=== PATIENT | female | born 1975 | race Caucasian/White ===

== ENCOUNTER 2017-01-29 21:34 | Emergency (ER) | payer MEDICAID ==
[~2017-01-29] VITALS: Ht 167.6 cm; Wt 67.0 kg
[~2017-01-29 21:34] MED LIST: CLIN150 PO
[2017-01-29 21:36] VITALS: BP 126/60; PULSE 82; RESP 16; TEMP 98.1; O2SAT 98
[2017-01-29] MEDS ORDERED: TETANUS/DIPHTHERIA TOXOID ADULT 0.5 ML VIAL IM ONE (23:30)
--- NOTE | 2017-01-29 23:32 | PD ---
HPI Chief Complaint: Injury Time Seen by Provider: 23:00 Travel History International Travel<30 days: No Contact w/Intl Traveler<30days: No Traveled to known affect area: No History of Present Illness HPI Patient is a 41-year-old female presenting to emergency for evaluation of a laceration to her right foot. Patient states she was walking out of her bedroom when she felt a sharp pain in her foot, looking down realized it was bleeding. She states her pain was a 4 out of 10 and describes as aching and sore. She is uncertain when her last tetanus vaccine was. She denies any numbness, tingling, weakness in her foot. PFSH Past Medical History Anemia: Yes Blood Disorders: No Anxiety: Yes Depression: No Cancer: No Cardiovascular Problems: No Diminished Hearing: No Endocrine: No Genitourinary: No Immune Disorder: No Musculoskeletal: No Neurologic: No Psychiatric: Yes Respiratory: No : 5 Para: 5 Tubal Ligation: Yes Past Surgical History Appendectomy: Yes Cholecystectomy: Yes Other Surgery: Yes (LLE sx) Social History Alcohol Use: No Tobacco Use: Yes (1/2 PACK) Substance Use: No Allergies-Medications (Allergen,Severity, Reaction): Coded Allergies: Codeine (Verified Allergy, Severe, SHORTNESS OF BREATH, 08/19/16) Percocet (Verified Allergy, Severe, 08/19/16) Lortab (Verified Adverse Reaction, Intermediate, SOB/HIVES, 08/19/16) Penicillin (Verified Adverse Reaction, Intermediate, 08/19/16) Reported Meds & Prescriptions Reported Meds & Active Scripts Active Cleocin (Clindamycin HCl) 150 Mg Cap 150 Mg PO Q6 10 Days Review of Systems Except as stated in HPI: all other systems reviewed are Neg Musculoskeletal: Positive: Pain Skin: Positive Other (laceration) Physical Exam Narrative GENERAL: Well-nourished, well-developed patient. SKIN: Focused skin assessment warm/dry. 2 cm laceration to the lateral aspect of the right foot. HEAD: Normocephalic. EYES: No scleral icterus. No injection or drainage. NECK: Supple, trachea midline. No JVD or lymphadenopathy. CARDIOVASCULAR: Regular rate and rhythm without murmurs, gallops, or rubs. RESPIRATORY: Breath sounds equal bilaterally. No accessory muscle use. GASTROINTESTINAL: Abdomen soft, non-tender, nondistended. MUSCULOSKELETAL: No cyanosis, or edema. Positive pedal pulses, brisk less than 3 second capillary refill. 5/5 muscle strength in bilateral lower extremities. Patient is neurovascularly intact. BACK: Nontender without obvious deformity. No CVA tenderness. Data Data Last Documented VS Vital Signs Date Time Temp Pulse Resp B/P Pulse Ox O2 Delivery O2 Flow Rate FiO2 01/29/17 21:36 98.1 82 16 126/60 98 Room Air Orders Shoe Post Op (01/29/17 ) Tetanus/Diphtheria Tox Adult (Tetanus/Di (01/29/17 23:30) Shoe Cast (01/29/17 ) MDM Medical Decision Making Medical Screen Exam Complete: Yes Emergency Medical Condition: Yes Interpretation(s) Vital Signs Date Time Temp Pulse Resp B/P Pulse Ox O2 Delivery O2 Flow Rate FiO2 01/29/17 21:36 98.1 82 16 126/60 98 Room Air Differential Diagnosis Laceration versus abrasion versus retained foreign body versus other Narrative Course Patient is a 41-year-old female presenting to emergency department for evaluation of a laceration to her right foot. No active bleeding noted, patient 's tetanus vaccine will be updated in the emergency department today. Please see procedure report laceration repair. Patient was well visualized, there is no tendon injury, no retained foreign body. Patient was advised to have stitches removed in 7-10 days. She will be given postop shoe for comfort. She denies return to emergency department for any new or worsening symptoms. She is advised to follow-up with her primary doctor. She verbalized understanding of instructions. Patient stable for discharge. Procedures Procedure Narrative LACERATION LOCATION: Right foot, lateral aspect LENGTH: 2 cm NUMBER OF STITCHES/MCKENNA: 4 stitches REPAIR: The area of the laceration was prepped with Betadine and sterilely draped. The laceration was infiltrated with 1% lidocaine with epi. The wound was copiously irrigated and explored without evidence of foreign body, tendon injury or neurovascular injury. The wound was closed using 4-0 Ethilon. This was a 1 layer repair. A sterile dressing was applied. The patient was advised to keep the dressing clean and dry. Patient tolerated the procedure well. Diagnosis Primary Impression: Laceration of foot Qualified Code: S91.311A - Laceration of foot, right, initial encounter Additional Impression: Tetanus-diphtheria vaccination administered at current visit Referrals: Primary Care Physician 1 week Patient Instructions: Care For Your Stitches (ED), General Instructions, Laceration (ED), Stitches Removal (DC) Departure Forms: Tests/Procedures, Work Release Enter return to work date: Jan 31, 2017 Additional Instructions: Follow-up with your primary doctor in 1 week to have stitches removed You may return to emergency department to have stitches removed Rest, ice, elevate extremity Keep stitches clean and dry, apply nonocclusive dressing Return to emergency department for any new or worsening symptoms Med/Other Pt SpecificInfo: No Change to Meds Disposition: 01 DISCHARGE HOME Condition: Stable Yessi Barahona Jan 29, 2017 23:32
== END 2017-01-29 23:59 | disposition home or self-care (01) ==
LOC: NEPC 21:34
DX: S91.311A Laceration without foreign body, right foot, initial encounter (principal); D64.9 Anemia, unspecified; W22.8XXA Striking against or struck by other objects, initial encounter; Y93.01 Activity, walking, marching and hiking; Y92.003 Bedroom of unspecified non-institutional (private) residence as the place of occurrence of the external cause; Z72.0 Tobacco use; Z23 Encounter for immunization
CPT/HCPCS: 12001; 90471; 90714; 99283; L3260

== ENCOUNTER 2017-02-05 12:50 | Emergency (ER) | payer MEDICAID ==
[~2017-02-05] VITALS: Ht 162.6 cm; Wt 56.0 kg
[2017-02-05 12:52] VITALS: BP 123/59; PULSE 86; RESP 20; TEMP 99; O2SAT 99
--- NOTE | 2017-02-05 13:07 | PD ---
Physical Exam Date Seen by Provider: Feb 05, 2017 Time Seen by Provider: 13:05 Data Data Last Documented VS Vital Signs Date Time Temp Pulse Resp B/P Pulse Ox O2 Delivery O2 Flow Rate FiO2 02/05/17 12:52 99.0 86 20 123/59 99 Room Air MDM Supervised Visit with LEIGH: No Narrative Course 41 YO F with complaint of suture removal from laceration of right foot. States the wound itches. Vitals reviewed. Awaiting bed placement. Rossy Moreno Feb 05, 2017 13:07
--- NOTE | 2017-02-05 13:18 | PD ---
HPI Chief Complaint: Wound/Suture/Staple Re-Check Time Seen by Provider: 13:17 Travel History International Travel<30 days: No Contact w/Intl Traveler<30days: No Traveled to known affect area: No History of Present Illness HPI 41-year-old female presents to the emergency department requesting suture removal to wound of her right foot. Stitches were placed on January 29. She denies fever, vomiting. Denies paresthesias, loss of sensation to the affected extremity. Denies drainage from the wound site. Has allergies to codeine, Lortab, penicillin, Percocet, Vicodin. Has no other medical complaints. No other modifying factors or associated signs and symptoms. PFSH Past Medical History Anemia: Yes Blood Disorders: No Anxiety: Yes Depression: No Cancer: No Cardiovascular Problems: No Diminished Hearing: No Endocrine: No Gastrointestinal Disorders: No Genitourinary: No Immune Disorder: No Implanted Vascular Access Dvce: No Musculoskeletal: No Neurologic: No Psychiatric: Yes Respiratory: No ?: Unknown : 5 Para: 5 Tubal Ligation: Yes Past Surgical History Appendectomy: Yes Cholecystectomy: Yes Other Surgery: Yes (LLE sx) Social History Alcohol Use: No Tobacco Use: Yes (1/2 PACK) Substance Use: No Allergies-Medications (Allergen,Severity, Reaction): Coded Allergies: Codeine (Verified Allergy, Severe, SHORTNESS OF BREATH, 02/05/17) Percocet (Verified Allergy, Severe, 02/05/17) Vicodin (Verified Allergy, Severe, Anaphylaxis, 02/05/17) Lortab (Verified Adverse Reaction, Intermediate, SOB/HIVES, 02/05/17) Penicillin (Verified Adverse Reaction, Intermediate, 02/05/17) Reported Meds & Prescriptions Reported Meds & Active Scripts Active Cleocin (Clindamycin HCl) 150 Mg Cap 150 Mg PO Q6 10 Days Review of Systems Except as stated in HPI: all other systems reviewed are Neg Physical Exam Narrative GENERAL: Well-nourished, well-developed female patient, in no acute distress; afebrile, nontoxic-appearing SKIN: Warm and dry. Wound to the dorsal, lateral aspect of right foot is well approximated with sutures intact; without erythema, edema, drainage. No signs of infection. Right lower extremity supple and nontender 2+ pedal pulse and sensory intact without erythema or edema. HEAD: Atraumatic. Normocephalic. EYES: Pupils equal and round. No scleral icterus. No injection or drainage. ENT: Mucosa pink and moist. Airway patent. NECK: Trachea midline. CARDIOVASCULAR: Regular rate. RESPIRATORY: No accessory muscle use. GASTROINTESTINAL: Flat. MUSCULOSKELETAL: No obvious deformities. No clubbing. No cyanosis. No edema. NEUROLOGICAL: Awake and alert. Oriented 3. No obvious cranial nerve deficits. Motor grossly within normal limits. Normal speech. PSYCHIATRIC: Appropriate mood and affect; insight and judgment normal. Data Data Last Documented VS Vital Signs Date Time Temp Pulse Resp B/P Pulse Ox O2 Delivery O2 Flow Rate FiO2 02/05/17 12:52 99.0 86 20 123/59 99 Room Air MDM Medical Decision Making Medical Screen Exam Complete: Yes Emergency Medical Condition: Yes Medical Record Reviewed: Yes Differential Diagnosis Wound recheck, suture removal, staple removal Narrative Course 41-year-old female presents for suture removal to laceration of right foot. Wound is well approximated with sutures intact. No signs of infection. Sutures removed. Patient tolerated well. Patient verbalizes understanding and agreement with treatment plan. Patient is medically cleared and stable for discharge. Discussed reasons to return to the emergency department. Instructed patient to follow up with primary care provider. Patient agrees with treatment plan. The patients vital signs are stable and the patient is stable for outpatient follow-up and treatment. Patient discharged home, stable and in no acute distress. Diagnosis Primary Impression: Encounter for removal of sutures Referrals: Primary Care Physician Patient Instructions: Acute Wound Care (ED), General Instructions, Stitches Removal (ED) Additional Instructions: Keep area clean and dry Topical ointment as needed for wound care Follow up with primary care provider Return to the emergency department immediately with worsening of symptoms Med/Other Pt SpecificInfo: No Change to Meds, No Meds Exist/No RX given Disposition: 01 DISCHARGE HOME Condition: Stable Kesha Dia Feb 05, 2017 13:18
== END 2017-02-05 14:09 | disposition home or self-care (01) ==
LOC: NEPK 12:50
DX: Z48.02 Encounter for removal of sutures (principal)
CPT/HCPCS: 99281

== ENCOUNTER 2017-02-11 13:30 | Emergency (ER) | payer MEDICAID ==
[~2017-02-11] VITALS: Ht 162.6 cm; Wt 58.0 kg
[2017-02-11 13:33] VITALS: BP 111/56; PULSE 81; RESP 20; TEMP 98.5; O2SAT 98
--- NOTE | 2017-02-11 14:00 | PD ---
Physical Exam Time Seen by Provider: 13:58 Narrative 41yo F c/o R foot wound that is not healing x 2 weeks. Denies fever, vomiting. Dneiess diabetes. C/o bleeding from wound site off and on. Patient seen in triage. VS reviewed. Awaiting bed placement. Data Data Last Documented VS Vital Signs Date Time Temp Pulse Resp B/P Pulse Ox O2 Delivery O2 Flow Rate FiO2 02/11/17 13:33 98.5 81 20 111/56 98 Room Air MDM Supervised Visit with LEIGH: Kesha Munson Feb 11, 2017 14:00
--- NOTE | 2017-02-11 14:05 | PD ---
HPI . right foot possible infection Chief Complaint: Skin Problem Time Seen by Provider: 14:05 Travel History International Travel<30 days: No Contact w/Intl Traveler<30days: No Traveled to known affect area: No History of Present Illness HPI 41-year-old female who received sutures on January 29, 2017 and had them removed in time here with complaints of possible infection. Patient says that occasionally she has some bleeding from the area and she was concerned about a possible infection. She denies any fever or chills. She does not have any bleeding or pain at the moment. She just wants the area rechecked. She is accompanied by her daughter. PFSH Past Medical History Anemia: Yes Blood Disorders: No Anxiety: Yes Depression: No Cancer: No Cardiovascular Problems: No Diminished Hearing: No Endocrine: No Gastrointestinal Disorders: No Genitourinary: No Immune Disorder: No Implanted Vascular Access Dvce: No Musculoskeletal: No Neurologic: No Psychiatric: Yes Respiratory: No : 5 Para: 5 Tubal Ligation: Yes Past Surgical History Appendectomy: Yes Cholecystectomy: Yes Other Surgery: Yes (LLE sx) Social History Alcohol Use: No Tobacco Use: Yes (1/2 PACK) Substance Use: No Allergies-Medications (Allergen,Severity, Reaction): Coded Allergies: Codeine (Verified Allergy, Severe, SHORTNESS OF BREATH, 02/11/17) Percocet (Verified Allergy, Severe, 02/11/17) Vicodin (Verified Allergy, Severe, Anaphylaxis, 02/11/17) Lortab (Verified Adverse Reaction, Intermediate, SOB/HIVES, 02/11/17) Penicillin (Verified Adverse Reaction, Intermediate, 02/11/17) Reported Meds & Prescriptions Reported Meds & Active Scripts Active Cleocin (Clindamycin HCl) 150 Mg Cap 150 Mg PO Q6 10 Days Review of Systems General / Constitutional: No: Fever Eyes: No: Visual changes HENT: No: Headaches Cardiovascular: No: Chest Pain or Discomfort Respiratory: No: Shortness of Breath Gastrointestinal: No: Abdominal Pain Genitourinary: No: Dysuria Musculoskeletal: No: Pain Skin: No Rash Neurologic: No: Weakness Psychiatric: No: Depression Endocrine: No: Polydipsia Hematologic/Lymphatic: No: Easy Bruising Physical Exam Narrative GENERAL: AAO x 3, no acute distress, Well-nourished, well-developed patient. SKIN: Warm and dry. No visible rashes or bruising. right lateral foot; suture site, healing well, no evidence of erythema, edema or temperature variation, no purulence or drainage present, no infection HEAD: Normocephalic and atraumatic. EYES: No scleral icterus. No injection or drainage. ENT: No nasal drainage noted. Mucous membranes pink. Airway patent. NECK: Supple, trachea midline. No JVD. CARDIOVASCULAR: Regular rate and rhythm without murmurs, gallops, or rubs. RESPIRATORY: Breath sounds equal bilaterally. No accessory muscle use. No rhonchi or rales. GASTROINTESTINAL: Visual inspection normal EXTREMITIES: No cyanosis or edema. BACK: Nontender without obvious deformity. No CVA tenderness. NEURO: CN II-12 intact, PSYCH: AAO x 3, normal affect. Data Data Last Documented VS Vital Signs Date Time Temp Pulse Resp B/P Pulse Ox O2 Delivery O2 Flow Rate FiO2 02/11/17 13:33 98.5 81 20 111/56 98 Room Air MDM Medical Decision Making Medical Screen Exam Complete: Yes Emergency Medical Condition: Yes Medical Record Reviewed: Yes Differential Diagnosis delayed healing, wound dehiscence, cellulitis Narrative Course 41-year-old female here wanting a recheck of her wound. There is no evidence of infection. Prolonged discussion with her regarding the signs of infection. I recommend that she leave the area open to air for the next several days and try not to touch it. Patient verbalized understanding of instructions, questions were answered, and thanked me for their care. I advised them if their condition worsens, please return to the nearest emergency room for further care. Diagnosis Primary Impression: Visit for wound check Patient Instructions: General Instructions Additional Instructions: [place] for worsening signs of infection which include fever, increased redness , increased warmth, purulent drainage, increased swelling or streaking. If any of these develop, please go to the nearest emergency room. Please return to emergency department if your symptoms return or worsen. Follow up with your primary care provider. Med/Other Pt SpecificInfo: No Change to Meds Disposition: 01 DISCHARGE HOME Condition: Stable Faviola Gutierrez Feb 11, 2017 14:05
== END 2017-02-11 14:35 | disposition home or self-care (01) ==
LOC: NEPD 13:30
DX: S91.301A Unspecified open wound, right foot, initial encounter (principal); X58.XXXA Exposure to other specified factors, initial encounter
CPT/HCPCS: 99281

== ENCOUNTER 2017-08-03 16:00 | Emergency (ER) | payer MEDICAID ==
[~2017-08-03] VITALS: Ht 162.6 cm; Wt 55.9 kg
[2017-08-03 16:01] VITALS: BP 125/58; PULSE 90; RESP 20; TEMP 99.1; O2SAT 100
[2017-08-03] MEDS ORDERED: IBUP1TAB5 PO (16:16)
[2017-08-03] MEDS ORDERED: IBUP-232 PO (17:10)
[2017-08-03] MEDS ORDERED: PRED20 PO (17:10)
--- NOTE | 2017-08-03 17:16 | PD ---
HPI Chief Complaint: Hip Injury Time Seen by Provider: 16:58 Travel History International Travel<30 days: No Contact w/Intl Traveler<30days: No Traveled to known affect area: No History of Present Illness HPI 42-year-old female presents to the emergency room for evaluation of right hip pain radiating down her right lower extremity for the past month. Denies trauma or injury. States over the past several days it has been worsening. Today is the worst. It is worse with certain range of motion, especially when she bends forward. Improved with rest. She has not been taking anything because she is afraid of allergic reaction. Denies lower extremity paresthesias , saddle anesthesia, or loss of bowel or bladder control. No chronic medical conditions or daily medications. She denies fever, chills, nausea, vomiting, weight left, cancer, and IV drug use. PFSH Past Medical History Anemia: Yes Blood Disorders: No Anxiety: Yes Depression: No Cancer: No Cardiovascular Problems: No Diminished Hearing: No Endocrine: No Gastrointestinal Disorders: No Genitourinary: No Immune Disorder: No Implanted Vascular Access Dvce: No Musculoskeletal: No Neurologic: No Psychiatric: Yes Respiratory: No ?: Not : 5 Para: 5 Tubal Ligation: Yes Past Surgical History Appendectomy: Yes Cholecystectomy: Yes Other Surgery: Yes (LLE sx) Social History Alcohol Use: No Tobacco Use: Yes (1/2 PACK) Substance Use: No Allergies-Medications (Allergen,Severity, Reaction): Coded Allergies: acetaminophen (Unverified Allergy, Severe, 08/03/17) codeine (Unverified Allergy, Severe, SHORTNESS OF BREATH, 08/03/17) hydrocodone (Unverified Allergy, Severe, Anaphylaxis, 08/03/17) oxycodone (Unverified Allergy, Severe, 08/03/17) penicillin G (Unverified Adverse Reaction, Intermediate, 08/03/17) Reported Meds & Prescriptions Reported Meds & Active Scripts Active Reported Ibuprofen 400 Mg Tab 400 Mg PO Q4H PRN Review of Systems Except as stated in HPI: all other systems reviewed are Neg Physical Exam Narrative GENERAL: Well-nourished, well-developed female in no acute distress. Afebrile. Ambulatory. SKIN: Focused skin assessment warm/dry. No erythema or ecchymosis. HEAD: Normocephalic. EYES: No scleral icterus. No injection or drainage. NECK: Supple, trachea midline. No JVD or lymphadenopathy. CARDIOVASCULAR: Regular rate and rhythm without murmurs, gallops, or rubs. RESPIRATORY: Breath sounds equal bilaterally. No accessory muscle use. MUSCULOSKELETAL: No cyanosis, or edema. Full range of motion of the hips. Tenderness to palpation of the right lateral iliac crest. BACK: Nontender without obvious deformity. No CVA tenderness. Data Data Last Documented VS Vital Signs Date Time Temp Pulse Resp B/P (MAP) Pulse Ox O2 Delivery O2 Flow Rate FiO2 08/03/17 16:01 99.1 90 20 125/58 (80) 100 Room Air MDM Medical Decision Making Medical Screen Exam Complete: Yes Emergency Medical Condition: Yes Medical Record Reviewed: Yes Differential Diagnosis Strength, sprain, sciatica, contusion Narrative Course 42-year-old female presents to the emergency room for evaluation of nontraumatic right hip pain radiates down the right lower extremity for the past month. Especially bad today. No red flag symptoms. No back pain or midline tenderness. She has been ambulatory since onset. No indication for imaging at this time. She does have tenderness to palpation of the right lateral iliac crest. Differential includes muscle strain, bursitis, or sciatica. Patient will be treated with ibuprofen and prednisone. Told to follow up with her PCP return for worsening symptoms. She understands and agrees to plan. Diagnosis Primary Impression: Right hip pain Referrals: Primary Care Physician Additional Instructions: Prednisone and ibuprofen as directed. Take these medications on a full stomach. Follow-up with PCP. Return for worsening symptoms. Med/Other Pt SpecificInfo: Prescription(s) given Scripts Ibuprofen (Ibuprofen) 600 Mg Tab 600 MG PO Q8HR Y for PAIN, #21 TAB 0 Refills Prov: Ivanna Brown MD 08/03/17 Prednisone (Prednisone) 20 Mg Tab 20 MG PO DAILY for 5 Days, #5 TAB 0 Refills Prov: Ivanna Brown MD 08/03/17 Disposition: 01 DISCHARGE HOME Condition: Stable Rosaura Green Aug 03, 2017 17:16
== END 2017-08-03 17:31 | disposition home or self-care (01) ==
LOC: NEPK 16:00
DX: M25.551 Pain in right hip (principal); D64.9 Anemia, unspecified; F41.9 Anxiety disorder, unspecified; F17.200 Nicotine dependence, unspecified, uncomplicated
CPT/HCPCS: 99283

== ENCOUNTER 2017-08-20 06:57 | Emergency (ER) | payer MEDICAID ==
[~2017-08-20] VITALS: Ht 162.6 cm; Wt 57.0 kg
[~2017-08-20 06:57] MED LIST changes: -CLIN150 PO; +IBUP-232 PO; +IBUP1TAB5 PO; +PRED20 PO
[2017-08-20 07:01] VITALS: BP 120/80; PULSE 86; RESP 12; TEMP 97.9; O2SAT 98
--- NOTE | 2017-08-20 07:22 | PD ---
HPI Chief Complaint: Pain: Acute or Chronic Time Seen by Provider: 07:33 Travel History International Travel<30 days: No Contact w/Intl Traveler<30days: No Traveled to known affect area: No History of Present Illness HPI 42-year-old female presents to emergency department complaining of right hip pain for 2 months. Patient states that she was here about 2 weeks ago was diagnosed with bursitis. Patient states that she was given prednisone and ibuprofen this has not reduced her pain. Patient describes pain as constant and aching, moderate. States that walking or pressure increases the pain. She denies radiation of pain. She says her hip feels like "she has to bones rubbing together". She denies trauma or falls. She is not followed up with her primary care physician regarding this pain. She denies fever, chills, history of IV drug use, nausea, vomiting, diarrhea. She has no prior history of this pain. She denies saddle anesthesia, loss of bowel or bladder function, weakness. PFSH Past Medical History Anemia: Yes Blood Disorders: No Anxiety: Yes Depression: No Cancer: No Cardiovascular Problems: No Diminished Hearing: No Endocrine: No Gastrointestinal Disorders: No Genitourinary: No Immune Disorder: No Implanted Vascular Access Dvce: No Musculoskeletal: No Neurologic: No Psychiatric: Yes Respiratory: No Influenza Vaccination: No ?: Not LMP: 07/2017 : 5 Para: 5 Tubal Ligation: Yes Past Surgical History Appendectomy: Yes Cholecystectomy: Yes Other Surgery: Yes ([facility] sx) Social History Alcohol Use: No Tobacco Use: Yes (1/2 PACK, PT STATES SHE QUIT 4 MONTHS AGO) Substance Use: No Allergies-Medications (Allergen,Severity, Reaction): Coded Allergies: acetaminophen (Unverified Allergy, Severe, 08/20/17) codeine (Unverified Allergy, Severe, SHORTNESS OF BREATH, 08/20/17) hydrocodone (Unverified Allergy, Severe, Anaphylaxis, 08/20/17) oxycodone (Unverified Allergy, Severe, 08/20/17) penicillin G (Unverified Adverse Reaction, Intermediate, 08/20/17) Reported Meds & Prescriptions Reported Meds & Active Scripts Active Ibuprofen 600 Mg Tab 600 Mg PO Q8HR PRN Prednisone 20 Mg Tab 20 Mg PO DAILY 5 Days Reported Ibuprofen 400 Mg Tab 400 Mg PO Q4H PRN Review of Systems Except as stated in HPI: all other systems reviewed are Neg Physical Exam Narrative GENERAL: Well-developed well-nourished in mild distress SKIN: Focused skin assessment warm/dry. HEAD: Atraumatic. Normocephalic. EYES: Pupils equal and round. No scleral icterus. No injection or drainage. ENT: No nasal bleeding or discharge. Mucous membranes pink and moist. NECK: Trachea midline. No JVD. CARDIOVASCULAR: Regular rate and rhythm. No murmur appreciated. RESPIRATORY: No accessory muscle use. Clear to auscultation. Breath sounds equal bilaterally. GASTROINTESTINAL: Abdomen soft, non-tender, nondistended. Hepatic and splenic margins not palpable. MUSCULOSKELETAL: No obvious deformities. No clubbing. No cyanosis. No edema. Right hip- TTP over ASIS without ecchymosis or crepitus. Mild TTP to the gluteus. Nontender over the trochanteric bursa. NEUROLOGICAL: Awake and alert. No obvious cranial nerve deficits. Motor grossly within normal limits. Normal speech. PSYCHIATRIC: Appropriate mood and affect; insight and judgment normal. Data Data Last Documented VS Vital Signs Date Time Temp Pulse Resp B/P (MAP) Pulse Ox O2 Delivery O2 Flow Rate FiO2 08/20/17 08:30 79 17 117/76 (90) 98 08/20/17 07:01 97.9 Orders Orders Hip, Uni(Ap&Lat) W Ap Pelvis (08/20/17 ) Ibuprofen (Motrin) (08/20/17 08:30) Ed Discharge Order (08/20/17 08:19) MDM Medical Decision Making Medical Screen Exam Complete: Yes Emergency Medical Condition: Yes Differential Diagnosis Right hip bursitis, fracture, osteoporosis, osteomyelitis, arthritis Narrative Course 42-year-old female presents to emergency department complaining of right hip pain for 2 months. Patient states that she was here about 2 weeks ago was diagnosed with bursitis. Patient states that she was given prednisone and ibuprofen this has not reduced her pain. Patient describes pain as constant and aching, moderate. States that walking or pressure increases the pain. She denies radiation of pain. She says her hip feels like "she has to bones rubbing together". She denies trauma or falls. She is not followed up with her primary care physician regarding this pain. She denies fever, chills, history of IV drug use, nausea, vomiting, diarrhea. She has no prior history of this pain. She denies saddle anesthesia, loss of bowel or bladder function, weakness. Vital signs stable Physical exam findings consistent with bursitis versus arthritis Last Impressions Hip and Pelvis X-Ray 08/20/17 0000 Signed Impressions: Service Date/Time: Sunday, August 20, 2017 07:55 - CONCLUSION: Unremarkable examination of the right hip. Dominic Mariano Jr., MD Patient have light duty for 1 week. Patient advised to use Motrin or Tylenol per package instructions for her pain. Advised to follow up with a primary care physician within 2-3 days. Advised follow-up with orthopedics for further treatment and evaluation. Patient advised to return to the emergency department for worsening or persistent symptoms. Diagnosis Primary Impression: Arthralgia of hip Qualified Codes: M25.551 - Pain in right hip Referrals: Orthopedist Primary Care Physician Patient Instructions: General Instructions, Hip Pain (ED) Departure Forms: Tests/Procedures, Work Release Enter return to work date: Aug 24, 2017 Special Instructions: Off or light duty. Rest when needed. Additional Instructions: Use ice or heat for symptom relief. Elevate the joint above the heart to reduce swelling. You may use compression with Prashant wrap or similar to reduce swelling. If symptoms persist or worsen, return to the emergency department. Follow up with your primary care physician within 2 days. Disposition: 01 DISCHARGE HOME Condition: Stable Kinsey Huitron Aug 20, 2017 07:22
--- NOTE | 2017-08-20 08:11 | RADRPT ---
EXAM DATE/TIME: 08/20/2017 07:55 [facility] COMPARISON: No previous studies available for comparison. INDICATIONS : Right hip paion x 4 months. MEDICAL HISTORY : Rt hip bursitis. SURGICAL HISTORY : None. ENCOUNTER: Initial ACUITY: 1 day PAIN SCORE: 8/10 LOCATION: Right Hip. FINDINGS: Examination of the right hip was performed with AP Pelvis. The primary and secondary trabecular carlos caterina of the femoral neck is intact. The hip joint is of normal width without significant sclerosis or bony hypertrophy. The acetabulum is grossly intact. CONCLUSION: Unremarkable examination of the right hip. Dominic Mariano Jr., MD on August 20, 2017 at 8:07 Board Certified Radiologist. This report was verified electronically.
[2017-08-20 08:30] VITALS: BP 117/76
[2017-08-20] MEDS ORDERED: IBUPROFEN 600 MG TAB PO ONE (08:30)
== END 2017-08-20 08:32 | disposition home or self-care (01) ==
LOC: NEPD 06:57
DX: M25.551 Pain in right hip (principal)
CPT/HCPCS: 73502; 99283

== ENCOUNTER 2017-11-06 08:48 | Emergency (ER) | payer MEDICAID ==
[~2017-11-06] VITALS: Ht 162.6 cm; Wt 60.0 kg
[2017-11-06 09:06] VITALS: BP 127/81; PULSE 89; RESP 18; TEMP 98.6; O2SAT 99
[2017-11-06] MEDS ORDERED: SODIUM CHLOR 0.9% 1000 ML INJ 1,000 ML IV SCH (09:41)
[2017-11-06] MEDS ORDERED: ONDANSETRON HCL 4 MG/2 ML VIAL IVP ONE (09:45)
[2017-11-06] MEDS ORDERED: SODIUM CHLORIDE 0.9% FLUSH 10 ML FLUSH IV FLUSH PRN (09:45)
--- NOTE | 2017-11-06 09:57 | PD ---
HPI Chief Complaint: GI Complaint Time Seen by Provider: 09:41 Travel History International Travel<30 days: No Contact w/Intl Traveler<30days: No Traveled to known affect area: No History of Present Illness HPI Patient was in her normal state of health yesterday, states her last normal meal that she ate was at [employer] with shrimp. This morning she woke up with nausea vomiting some slight abdominal cramping which relieved with diarrhea movement. Currently she has no abdominal pain. Patient denies any alleviating factors, aggravated by drinking or eating any food. Patient states that she develops nausea vomiting and difficulty breathing per patient whenever she takes penicillin oxycodone hydrocodone or codeine. Patient has a past medical and surgical history significant for anxiety, tubal ligation, cholecystectomy, appendectomy. PFSH Past Medical History Anemia: Yes Blood Disorders: No Anxiety: Yes Depression: No Cancer: No Cardiovascular Problems: No Diminished Hearing: No Endocrine: No Gastrointestinal Disorders: No Genitourinary: No Immune Disorder: No Implanted Vascular Access Dvce: No Musculoskeletal: No Neurologic: No Psychiatric: Yes Respiratory: No ?: Unknown LMP: September LAST DAY2017 : 5 Para: 5 Tubal Ligation: Yes (2002) Past Surgical History Appendectomy: Yes Cholecystectomy: Yes Other Surgery: Yes ([facility] sx) Social History Alcohol Use: No Tobacco Use: No Substance Use: No Allergies-Medications (Allergen,Severity, Reaction): Coded Allergies: acetaminophen (Unverified Allergy, Severe, 11/06/17) codeine (Unverified Allergy, Severe, SHORTNESS OF BREATH, 11/06/17) hydrocodone (Unverified Allergy, Severe, Anaphylaxis, 11/06/17) oxycodone (Unverified Allergy, Severe, 11/06/17) penicillin G (Unverified Adverse Reaction, Intermediate, 11/06/17) Reported Meds & Prescriptions Reported Meds & Active Scripts Active No Active Prescriptions or Reported Medications Physical Exam Narrative GENERAL: SKIN: Warm and dry. HEAD: Atraumatic. Normocephalic. EYES: Pupils equal and round. No scleral icterus. No injection or drainage. ENT: No nasal bleeding or discharge. Mucous membranes pink and moist. NECK: Trachea midline. No JVD. CARDIOVASCULAR: Regular rate and rhythm. RESPIRATORY: No accessory muscle use. Clear to auscultation. Breath sounds equal bilaterally. GASTROINTESTINAL: Abdomen soft, non-tender, nondistended. But with hyperactive bowel sounds MUSCULOSKELETAL: Extremities without clubbing, cyanosis, or edema. No obvious deformities. NEUROLOGICAL: Awake and alert. No obvious cranial nerve deficits. Motor grossly within normal limits. Five out of 5 muscle strength in the arms and legs. Normal speech. PSYCHIATRIC: Appropriate mood and affect; insight and judgment normal. Data Data Last Documented VS Vital Signs Date Time Temp Pulse Resp B/P (MAP) Pulse Ox O2 Delivery O2 Flow Rate FiO2 11/06/17 09:06 98.6 89 18 127/81 (96) 99 Orders Orders Complete Blood Count With Diff (11/06/17 09:41) Comprehensive Metabolic Panel (11/06/17 09:41) Lipase (11/06/17 09:41) Urinalysis - C+S If Indicated (11/06/17 09:41) Iv Access Insert/Monitor (11/06/17 09:41) Ecg Monitoring (11/06/17 09:41) Oximetry (11/06/17 09:41) NPO (11/06/17 09:41) Ondansetron Inj (Zofran Inj) (11/06/17 09:45) Sodium Chlor 0.9% 1000 Ml Inj (Ns 1000 M (11/06/17 09:41) Sodium Chloride 0.9% Flush (Ns Flush) (11/06/17 09:45) Ed Urine Pregnancytest Poc (11/06/17 09:41) Labs Laboratory Tests Test 11/06/17 10:00 White Blood Count 15.1 TH/MM3 Red Blood Count 4.58 MIL/MM3 Hemoglobin 13.4 GM/DL Hematocrit 39.8 % Mean Corpuscular Volume 87.0 FL Mean Corpuscular Hemoglobin 29.2 PG Mean Corpuscular Hemoglobin Concent 33.5 % Red Cell Distribution Width 13.1 % Platelet Count 295 TH/MM3 Mean Platelet Volume 7.3 FL Neutrophils (%) (Auto) 83.3 % Lymphocytes (%) (Auto) 7.1 % Monocytes (%) (Auto) 6.9 % Eosinophils (%) (Auto) 2.5 % Basophils (%) (Auto) 0.2 % Neutrophils # (Auto) 12.6 TH/MM3 Lymphocytes # (Auto) 1.1 TH/MM3 Monocytes # (Auto) 1.0 TH/MM3 Eosinophils # (Auto) 0.4 TH/MM3 Basophils # (Auto) 0.0 TH/MM3 CBC Comment DIFF FINAL Differential Comment Urine Color YELLOW Urine Turbidity HAZY Urine pH 5.5 Urine Specific [place] 1.032 Urine Protein TRACE mg/dL Urine Glucose (UA) NEG mg/dL Urine Ketones NEG mg/dL Urine Occult Blood SMALL Urine Nitrite NEG Urine Bilirubin NEG Urine Urobilinogen LESS THAN 2.0 MG/DL Urine Leukocyte Esterase LARGE Urine RBC 5 /hpf Urine WBC 5 /hpf Urine Squamous Epithelial Cells 6 /hpf Urine Bacteria OCC /hpf Urine Hyaline Casts 1 /lpf Urine Mucus FEW /lpf Microscopic Urinalysis Comment CULT NOT INDICATED Blood Urea Nitrogen 15 MG/DL Creatinine 0.68 MG/DL Random Glucose 87 MG/DL Total Protein 7.5 GM/DL Albumin 3.9 GM/DL Calcium Level 8.2 MG/DL Alkaline Phosphatase 45 U/L Aspartate Amino Transf (AST/SGOT) 21 U/L Alanine Aminotransferase (ALT/SGPT) 30 U/L Total Bilirubin 0.6 MG/DL Sodium Level 139 MEQ/L Potassium Level 3.9 MEQ/L Chloride Level 106 MEQ/L Carbon Dioxide Level 27.2 MEQ/L Anion Gap 6 MEQ/L Estimat Glomerular Filtration Rate 95 ML/MIN Lipase 123 U/L [facility] Medical Decision Making Medical Screen Exam Complete: Yes Emergency Medical Condition: Yes Medical Record Reviewed: Yes Differential Diagnosis BACTERIAL V VIRAL GASTROENTERITIS V FOOD POISONING Narrative Course UA IS NEG FOR UTI CBC SHOWS LEUKOCYTOSIS WITH MILD LEFT SHIFT C/W BACTERIAL INFECTION, NO ANEMIA CMP SHOWS: NORMAL LIVER/KIDNEY/PANCREAS FUNCTIONS AND NORMAL ELECTROLYTES Diagnosis Primary Impression: BACTERIAL GASTROENTERITIS Patient Instructions: Gastroenteritis (ED), General Instructions Scripts Ciprofloxacin (Cipro) 500 Mg Tab 500 MG PO BID for Infection for 5 Days, #10 TAB 0 Refills Prov: Candido Cooney MD 11/06/17 Metronidazole (Flagyl) 500 Mg Tab 500 MG PO TID for Infection, #15 TAB 0 Refills Prov: Candido Cooney MD 11/06/17 Tramadol (Ultram) 50 Mg Tab 50 MG PO Q8H Y for PAIN, #14 TAB 0 Refills Prov: Candido Cooney MD 11/06/17 Ondansetron Odt (Zofran Odt) 4 Mg Tab 4 MG SL Q6HR Y for Nausea/Vomiting, #15 TAB 0 Refills Prov: Candido Cooney MD 11/06/17 Disposition: 01 DISCHARGE HOME Condition: Stable Candido Cooney MD Nov 06, 2017 09:57
[2017-11-06 10:20] LABS: AUTOMATED NEUTROPHIL # 12.6 TH/MM3 (1.8-7.7); BASOPHIL % 0.2 % (0.0-2.0); EOSINOPHIL # 0.4 TH/MM3 (0-0.4); EOSINOPHIL % 2.5 % (0.0-4.0); HEMATOCRIT 39.8 % (35.0-46.0); HEMOGLOBIN 13.4 GM/DL (11.6-15.3); LYMPH % 7.1 % (9.0-44.0); LYMPHOCYTE # 1.1 TH/MM3 (1.0-4.8); MEAN CORPUSCULAR HEMOGLOBIN 29.2 PG (27.0-34.0); MEAN CORPUSCULAR HGB CONC 33.5 % (32.0-36.0); MEAN PLATELET VOLUME 7.3 FL (7.0-11.0); MONO % 6.9 % (0.0-8.0); NEUT % 83.3 % (16.0-70.0); PLATELET COUNT 295 TH/MM3 (150-450); RED BLOOD COUNT 4.58 MIL/MM3 (4.00-5.30); RED CELL DISTRIBUTION WIDTH 13.1 % (11.6-17.2); WHITE BLOOD COUNT 15.1 TH/MM3 (4.0-11.0)
[2017-11-06 10:23] LABS: BACTERIA, URINE OCC /hpf; BILIRUBIN, URINE NEG (NEG); BLOOD, URINE SMALL (NEG); GLUCOSE,URINE NEG (NEG); HYALINE CAST, URINE 1 /lpf (RARE); KETONE, URINE NEG (NEG); MUCUS URINE FEW /lpf (OCC); NITRITE,URINE NEG (NEG); PH, URINE 5.5 (5.0-8.5); SQUAMOUS EPITHELIAL CELL URINE 6 /hpf (0-5); URINE COLOR YELLOW (YELLW/STRAW); URINE LEUKOCYTE ESTERASE LARGE (NEG)
[2017-11-06 10:52] LABS: ALBUMIN 3.9 GM/DL (3.4-5.0); ALT (GPT) 30 U/L (10-53); AST (GOT) 21 U/L (15-37); BICARBONATE 27.2 MEQ/L (21.0-32.0); BLOOD UREA NITROGEN 15 MG/DL (7-18); CALCIUM 8.2 MG/DL (8.5-10.1); CHLORIDE 106 MEQ/L (98-107); CREATININE 0.68 MG/DL (0.50-1.00); GLOMERULAR FILTRATION RATE 95 ML/MIN (>89); GLUCOSE,RANDOM 87 MG/DL (74-106); SODIUM (NA) 139 MEQ/L (136-145)
[2017-11-06 10:53] LABS: ALKALINE PHOSPHATASE 45 U/L (45-117); TOTAL BILIRUBIN ADULT 0.6 MG/DL (0.2-1.0); TOTAL PROTEIN 7.5 GM/DL (6.4-8.2)
[2017-11-06] MEDS ORDERED: CIPR-9 PO (12:36)
[2017-11-06] MEDS ORDERED: ZOFR4TAB3 SL (12:36)
[2017-11-06] MEDS ORDERED: METR-1 PO (12:36)
[2017-11-06] MEDS ORDERED: TRAM50 PO (12:36)
== END 2017-11-06 13:01 | disposition home or self-care (01) ==
LOC: NEPC 08:48
DX: K52.9 Noninfective gastroenteritis and colitis, unspecified (principal); F41.9 Anxiety disorder, unspecified
CPT/HCPCS: 80053; 81001; 83690; 84703; 85025; 96374; 99284; J2405; J7030